=== PATIENT | female | born 1975 | race Caucasian/White ===

== ENCOUNTER → 2016-07-05 | Outpatient (CLI) | payer OTHER ==
[2016-07-05 17:16] LABS: THYROID STIMULATING HORMONE 0.941 uIu/ml (0.300-4.500)
== END | disposition home or self-care (01) ==
LOC: C.LABBC 12:31
PROVIDERS: ATTEND Nurse Practitioner Family
DX: E03.9 Hypothyroidism, unspecified (principal)

== ENCOUNTER → 2017-02-04 | Outpatient (CLI) | payer BC ==
--- NOTE | 2017-02-04 15:52 | MAMMOGRAPHY REPORT ---
BILATERAL DIGITAL SCREENING MAMMOGRAM TOMOSYNTHESIS WITH CAD: 02/04/2017 CLINICAL HISTORY: Routine screening. Patient has no complaints. TECHNIQUE: Breast tomosynthesis in addition to standard 2D mammography was performed. Current study was also evaluated with a Computer Aided Detection (CAD) system. COMPARISON: Comparison is made to exams dated: 01/23/2016 mammogram, 01/22/2015 ultrasound, 01/22/2015 mammogram, 01/15/2014 mammogram - [facility], and 10/25/2011 mammogram - [facility]. BREAST COMPOSITION: The tissue of both breasts is heterogeneously dense, which may obscure small mas ses. FINDINGS: No suspicious masses, calcifications, or areas of architectural distortion are noted in ei ther breast. There has been no significant interval change compared to prior exams. Asymmetry in the right retroareolar breast posteriorly on the right MLO view is stable compared to prior exams includ ing the spot compression view from the January 2015 exam, and is therefore benign and felt to represe nt normal fibroglandular tissue. Scattered bilateral benign-appearing calcifications are not signifi cantly changed. IMPRESSION: ACR BI-RADS CATEGORY 2: BENIGN There is no mammographic evidence of malignancy. A 1 year screening mammogram is recommended. The pa tient will receive written notification of the results. Approximately 10% of breast cancers are not detected with mammography. A negative mammographic report should not delay biopsy if a clinically suggestive mass is present. Beth Barajas M.D. /:02/04/2017 15:18:27 Mason Liner: Charlene See, [facility] letter sent: Normal 1/2 BI-RADS Code: ACR BI-RADS Category 2: Benign
== END | disposition home or self-care (01) ==
LOC: C.MAMM 10:12
PROVIDERS: ATTEND Obstetrics & Gynecology
DX: Z12.31 Encounter for screening mammogram for malignant neoplasm of breast (principal)

== ENCOUNTER → 2017-02-04 | Outpatient (CLI) | payer BC ==
--- NOTE | 2017-02-04 11:06 | DIAGNOSTIC IMAGING REPORT ---
L FOOT MIN 3 VIEWS ROUTINE, R FOOT MIN 3 VIEWS ROUTINE HISTORY: 41 years-old Female BUNION bunion formation of the bilateral feet COMPARISON: None available TECHNIQUE: 3 views of the left and 3 views of the right foot FINDINGS: LEFT: Mild hallux valgus deformity with bunion formation and mild associated soft tissue prominence with mild first MTP joint degenerative change. Note is made of an os intermetatarsum at the first webspace adjacent to the metatarsal bases. No acute fracture, dislocation or stress fracture. No opaque foreign body. RIGHT: Small bunion formation with mild associated soft tissue prominence. Mild first MTP joint degenerative changes. No acute fracture, dislocation or stress fracture. Small subcortical cystic change of the fifth metatarsal. IMPRESSION: 1. No acute fracture or dislocation. 2. Bilateral bunion formation with left hallux valgus deformity. 3. 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 The above report was generated using voice recognition software. It may contain grammatical, syntax or spelling errors. Electronically signed by: Glenn Desai M.D. 02/04/2017 11:05 AM Dictated Date/Time: 02/04/2017 10:56 AM
== END | disposition home or self-care (01) ==
LOC: C.RAD1850 10:38
PROVIDERS: ATTEND Nurse Practitioner Family
DX: M21.619 Bunion of unspecified foot (principal)

== ENCOUNTER → 2017-05-23 | Outpatient (CLI) | payer OTHER | END | disposition home or self-care (01) | LOC: C.LABSPEC 13:46 → C.PAPS 13:47 | PROVIDERS: ATTEND Obstetrics & Gynecology | DX: Z01.419 Encounter for gynecological examination (general) (routine) without abnormal findings (principal) ==